=== PATIENT | female | born 1960 | race Caucasian/White ===

== ENCOUNTER 2017-02-18 15:19 | Emergency (ER) | payer MEDICARE, MEDICAID ==
[2017-02-18 15:30] VITALS: BP 135/96
[2017-02-18] MEDS ORDERED: HYDROcodone/ACETAMINOPHEN 1 EACH TABLET PO ONE (15:46)
--- NOTE | 2017-02-18 15:47 | ERNOTE ---
Lower Extremity HPI - Narrative Date of Service: 02/18/17 - General Lower Extremities Pain: leg: left Time Seen by Provider: 02/18/17 15:31 Source: patient, RN notes reviewed Exam Limitations: no limitations - Immun/Allergies/Home Medications Immunizations: IMMUNIZATION HX Immunizations Up to Date Yes History of Influenza Vaccine Yes Hx Pneumococcal Vaccination No Allergies/Adverse Reactions: Allergies Allergy/AdvReac Type Severity Reaction Status Date / Time No Known Allergies Allergy Verified 02/18/17 15:30 Home Medications: HOME MEDICATIONS ALPRAZolam [Xanax] 0.5 mg PO BID PRN 02/18/17 [Last Taken Unknown] Aspirin 325 mg PO DAILY 02/18/17 [Last Taken Unknown] Cholecalciferol (Vitamin D3) [Vitamin D] 2,000 unit PO DAILY 02/18/17 [Last Taken Unknown] Cyanocobalamin (Vitamin B-12) [B-12] 1,000 mcg PO DAILY 02/18/17 [Last Taken Unknown] Diltiazem HCl [Cartia Xt] 120 mg PO DAILY 02/18/17 [Last Taken Unknown] Empagliflozin [Jardiance] 10 mg PO DAILY 02/18/17 [Last Taken Unknown] Fenofibrate 160 mg PO DAILY 02/18/17 [Last Taken Unknown] Hydroxyzine HCl 50 mg PO TID 02/18/17 [Last Taken Unknown] Insulin Aspart Prot/Insuln Asp [Novolog Mix 70/30] 85 units SC BID 02/18/17 [ Last Taken Unknown] Ipratropium/Albuterol Sulfate [Combivent Respimat Inhal [place]] 1 puff IH QID [Last Taken Unknown] Levothyroxine Sodium [Synthroid] 50 mcg PO DAILY 02/18/17 [Last Taken Unknown] Losartan Potassium [Cozaar] 100 mg PO DAILY 02/18/17 [Last Taken Unknown] Memantine HCl 5 mg PO DAILY 02/18/17 [Last Taken Unknown] Prasugrel HCl [Effient] 10 mg PO DAILY 02/18/17 [Last Taken Unknown] Ranitidine HCl [Zantac] 150 mg PO BID 02/18/17 [Last Taken Unknown] Simvastatin [Zocor] 40 mg PO HS 02/18/17 [Last Taken Unknown] levETIRAcetam [Keppra] 500 mg PO BID 02/18/17 [Last Taken Unknown] - History of Present Illness Narrative: 56 y/o female presents to the ED for pain in her left lateral leg, just distal to the knee, that began suddenly while she was walking just shortly [employer]. She also felt a "pop" and reports edema in the area that is painful. She is concerned that she has a DVT. She has no prior history of DVT. She was seen in the ED at [facility] a week ago for leg pain. She was diagnosed with PVD and is to f/ u with Dr. Zapien. Occurred: just prior to arrival Method of Injury: Reports: no apparent injury Associated Symptoms: Reports: popping sensation. Denies: unable to bear weight , dizzy/light headedness, weakness, chest pain Other Injuries: Reports: none Subsequent Symptoms: Denies: sensory loss, numbness, motor loss Prior Treament: Reports: recently seen. Denies: similar symptoms before Review of Systems - Review of Systems Constitutional: Absent: recent illness, fever, decreased activity level EYE: Present: no symptoms reported ENT: Present: no symptoms reported Respiratory: Absent: shortness of breath, cough Cardiology: Absent: chest pain, edema, claudication Gastrointestinal/Abdominal: Absent: nausea, abdominal pain Genitourinary: Present: no symptoms reported Musculoskeletal: Present: muscle pain. Absent: joint pain, joint swelling Skin: Present: lumps. Absent: rash, lesions, change in color Neurological: Absent: weakness, numbness, tingling Endocrine: Present: no symptoms reported Hematologic/Lymphatic: Present: easy bruising, easy bleeding Psych: Present: no symptoms reported - Patient's Past Medical History Patient History - Medical: Diabetes Type 2, Obesity Patient History - Cardiac/Respiratory: Coronary Heart Disease, COPD, Hypertension, Hyperlipidemia Patient History - Cancer: Other Patient History - Surgical Procedures: Cholecystectomy, Colon Resection, Colonoscopy, Cardiac stent, Hysterectomy, Other Patient History - Other: None LMP (females 10-50): Menopausal - Social History Living Situations: spouse Abuse History: No History of abuse Psych History: No pertinent hx Smoking Status: Current every day smoker Have you smoked in the past 12 months: Yes Do you dip or chew tobacco: No Alcohol Use: none Drug Use: none - Immunizations Immunizations Up to Date: Yes Hx Pneumococcal Vaccination: No History of Influenza Vaccine: Yes Physical Exam - Physical Exam General Appearance: Present: wd/wn, alert, mild distress Respiratory: Present: no respiratory distress, no accessory muscle use, expiration (prolonged), rhonchi, wheezing Cardiovascular/Chest: Present: regular rate, rhythm, no murmur, normal peripheral pulses Extremity Exam: Present: normal range of motion, other - Left lateral leg tender and edematous near proximal fibula. Absent: pedal edema, calf tenderness , joint swelling Neurological Exam: Present: alert, oriented, normal mood/affect, no motor/ sensory deficits Skin Exam: Present: normal color, warm/dry ED Progress - Results and Orders Patient's Lab Results:: I have reviewed the patient's lab results. - Vital Signs Patient's Vital Signs:: I have reviewed the patient's vital signs. Vital Signs: Vital Signs 02/18/17 15:22 Temperature 36.2 C L Pulse Rate 94 Respiratory 16 Rate Blood Pressure 135/96 O2 Sat by Pulse 96 Oximetry - X-Ray X-Ray #1 X-Ray: tibula/fibula - Left Interpretation: Interp. by me X-ray Comments: No acute osseous abnormality noted - Progress/Reassessment Chief Complaint: Lower Extremity Pain/ Injury Departure Clinical Impression: Muscle strain of left lower extremity Qualifiers: Encounter type: initial encounter Qualified Code(s): S86.912A - Strain of unspecified muscle(s) and tendon(s) at lower leg level, left leg, initial encounter - Departure Disposition: Home Follow Up Needed Condition: Good Instructions: Muscle Strain, [id number] Additional Instructions: Ice and elevate DIANN wrap as needed Continue your routine medications Referrals: Kat Millan FNP [Primary Care Provider] -
[2017-02-18] MEDS ORDERED: HYDROcodone/ACETAMINOPHEN 1 EACH TABLET ONE (16:03)
[2017-02-18 16:13] LABS: Albumin * 3.6 gm/dl (3.4-5.0); Anion Gap 17.1 mmol/L (6.8-13.8); BUN/Creatinine Ratio 19.3 (9.0-21.6); Bilirubin, Total 0.2 mg/dL (0.0-1.1); CRP 0.6 mg/dL (0.0-0.9); Ca. Corrected For Albumin 9.1 mg/dL (8.4-10.2); Calcium * 9.1 mg/dL (7.9-10.9); Carbon Dioxide 21.6 mmol/L (24-32.6); Potassium 3.7 mmol/L (3.4-4.6)
[2017-02-18 17:02] LABS: Hemoglobin 15.9 gm/dL (12.5-16.0); Mean Cell Volume 89.4 fl (78-100); Mean Corpuscular Hemoglobin 30.2 pg (27-31); Mean Corpuscular Hgb Conc 33.8 g/dl (32-36); Mean Platelet Volume 10.9 fl (6.0-9.5); Neutrophil # 5.4 K/mm3 (1.3-6.0); Neutrophil % 53.7 % (42-75.0); Platelet Count 227 K/mm3 (150-450); Red Blood Count 5.26 M/mm3 (4.2-5.4); Red Cell Distribution Width 13.6 % (11.5-14.0); White Blood Count 10.1 K/mm3 (4.0-10.5)
== END 2017-02-18 16:52 | disposition home or self-care (01) ==
LOC: ER 15:19
DX: S86.912A Strain of unspecified muscle(s) and tendon(s) at lower leg level, left leg, initial encounter (principal); E11.9 Type 2 diabetes mellitus without complications; I25.2 Old myocardial infarction; J44.9 Chronic obstructive pulmonary disease, unspecified; I10 Essential (primary) hypertension; E78.5 Hyperlipidemia, unspecified

== ENCOUNTER 2017-03-31 19:07 | Emergency (ER) | payer MEDICARE, MEDICAID ==
[2017-03-31] MEDS ORDERED: DIATRIZOATE MEGLUMINE, SODIUM 30 ML BTL ONE (19:58)
--- NOTE | 2017-03-31 20:05 | ERNOTE ---
Abdominal HPI - Narrative Date of Service: 03/31/17 - General Chief Complaint: Abdominal Pain Time Seen by Provider: 03/31/17 19:50 Source: patient Exam Limitations: no limitations - Immun/Allergies/Home Medications Immunizatons: IMMUNIZATION HX Immunizations Up to Date Yes History of Influenza Vaccine No Hx Pneumococcal Vaccination No Allergies/Adverse Reactions: Allergies No Known Allergies Allergy (Verified 03/31/17 19:40) Home Medications: HOME MEDICATIONS ALPRAZolam [Xanax] 0.5 mg PO BID PRN 02/18/17 [Last Taken Unknown] Aspirin 325 mg PO DAILY 02/18/17 [Last Taken Unknown] Cholecalciferol (Vitamin D3) [Vitamin D] 2,000 unit PO DAILY 02/18/17 [Last Taken Unknown] Cyanocobalamin (Vitamin B-12) [B-12] 1,000 mcg PO DAILY 02/18/17 [Last Taken Unknown] Diltiazem HCl [Cartia Xt] 120 mg PO DAILY 02/18/17 [Last Taken Unknown] Empagliflozin [Jardiance] 10 mg PO DAILY 02/18/17 [Last Taken Unknown] Fenofibrate 160 mg PO DAILY 02/18/17 [Last Taken Unknown] Hydroxyzine HCl 50 mg PO TID 02/18/17 [Last Taken Unknown] Insulin Aspart Prot/Insuln Asp [Novolog Mix 70/30] 85 units SC BID 02/18/17 [ Last Taken Unknown] Ipratropium/Albuterol Sulfate [Combivent Respimat Inhal [place]] 1 puff IH QID [Last Taken Unknown] Levothyroxine Sodium [Synthroid] 50 mcg PO DAILY 02/18/17 [Last Taken Unknown] Losartan Potassium [Cozaar] 100 mg PO DAILY 02/18/17 [Last Taken Unknown] Memantine HCl 5 mg PO DAILY 02/18/17 [Last Taken Unknown] Prasugrel HCl [Effient] 10 mg PO DAILY 02/18/17 [Last Taken Unknown] Ranitidine HCl [Zantac] 150 mg PO BID 02/18/17 [Last Taken Unknown] Simvastatin [Zocor] 40 mg PO HS 02/18/17 [Last Taken Unknown] levETIRAcetam [Keppra] 500 mg PO BID 02/18/17 [Last Taken Unknown] - History of Present Illness Narrative: pt presents to the ED for five days of abd pain and distension. Denies nausea or vomiting. She has a history of prior abd surgeries. She has DM and CAD with stents. She denies any chest pain. She was scheduled to have an abd CT this coming Monday but the pain was too much Review of Systems - Review of Systems Constitutional: Present: no symptoms reported EYE: Present: no symptoms reported ENT: Present: no symptoms reported Respiratory: Present: no symptoms reported Cardiology: Present: no symptoms reported Gastrointestinal/Abdominal: Present: See HPI Genitourinary: Present: no symptoms reported Musculoskeletal: Present: no symptoms reported Skin: Present: no symptoms reported - Patient's Past Medical History Patient History - Medical: Diabetes Type 2, Obesity Patient History - Cardiac/Respiratory: Coronary Heart Disease, COPD, Hypertension, Hyperlipidemia Patient History - Cancer: Other Patient History - Surgical Procedures: Cholecystectomy, Colon Resection, Colonoscopy, Cardiac stent, Hysterectomy, Other Patient History - Other: None - Social History Living Situations: home Abuse History: No History of abuse Psych History: Hx of Anxiety, Hx of Depression Smoking Status: Current every day smoker Alcohol Use: none Drug Use: none - Immunizations Immunizations Up to Date: Yes Hx Pneumococcal Vaccination: No History of Influenza Vaccine: No Physical Exam - Physical Exam General Appearance: Present: wd/wn, alert, no apparent distress Head Exam: Present: normal inspection, no evidence of injury Respiratory: Present: no respiratory distress, normal breath sounds, no accessory muscle use, chest nontender, lungs clear Cardiovascular/Chest: Present: regular rate, rhythm, no murmur, normal peripheral pulses Gastrointestinal/Abdominal: Present: tenderness, distended, guarding, other - decreased and distant bowel sounds noted Extremity Exam: Present: normal inspection, non-tender, normal range of motion, no edema Neurological Exam: Present: alert, oriented, normal mood/affect, no motor/ sensory deficits ED Progress - Vital Signs Patient's Vital Signs:: I have reviewed the patient's vital signs. Vital Signs: Vital Signs 03/31/17 19:34 Temperature 36.3 C L Pulse Rate 83 Respiratory 18 Rate Blood Pressure 145/87 O2 Sat by Pulse 95 Oximetry - Progress/Reassessment Chief Complaint: Abdominal Pain Plan - Plan Plan: Patient will be treated for constipation. Departure Clinical Impression: Constipation Qualifiers: Constipation type: other constipation type Qualified Code(s): K59.09 - Other constipation - Departure Disposition: Home self-care Condition: Good Instructions: Constipation, Adult, [id number] Referrals: Kat Millan FNP [Primary Care Provider] -
[2017-03-31] MEDS ORDERED: DIATRIZOATE MEGLUMINE, SODIUM 30 ML BTL PO ONE (20:08)
[2017-03-31 20:09] LABS: Hematocrit 50.9 % (37.0-47.0); Hemoglobin 17.4 gm/dL (12.5-16.0); Mean Cell Volume 88.8 fl (78-100); Mean Corpuscular Hemoglobin 30.4 pg (27-31); Mean Corpuscular Hgb Conc 34.2 g/dl (32-36); Mean Platelet Volume 10.5 fl (6.0-9.5); Neutrophil # 7.4 K/mm3 (1.3-6.0); Neutrophil % 58.7 % (42-75.0); Platelet Count 212 K/mm3 (150-450); Red Blood Count 5.73 M/mm3 (4.2-5.4); Red Cell Distribution Width 13.3 % (11.5-14.0); White Blood Count 12.7 K/mm3 (4.0-10.5)
[2017-03-31 20:22] LABS: Albumin * 3.9 gm/dl (3.4-5.0); Anion Gap 13.6 mmol/L (6.8-13.8); Bilirubin, Total 0.3 mg/dL (0.0-1.1); Ca. Corrected For Albumin 9.9 mg/dL (8.4-10.2); Calcium * 10.1 mg/dL (7.9-10.9); Carbon Dioxide 27.2 mmol/L (24-32.6); Potassium 3.8 mmol/L (3.4-4.6); Total Protein 7.6 gm/dL (6.2-8.2)
[2017-03-31] MEDS ORDERED: NORMAL SALINE 1,000 ML IV ONE ×2 (20:25→20:26)
[2017-03-31] MEDS ORDERED: ONDANSETRON HCL/PF 2 MG/ML VIAL IV ONE (20:26)
[2017-03-31] MEDS ORDERED: ONDANSETRON HCL/PF 2 MG/ML VIAL ONE (20:53)
[2017-03-31 21:37] LABS: Urine Color Yellow
[2017-03-31 21:38] LABS: Urine Appearance Slightly Cloudy; Urine Bilirubin Negative (NEGATIVE); Urine Blood Negative /ul (NEGATIVE); Urine Ketone Negative (NEGATIVE); Urine Nitrite Negative (NEGATIVE); Urine Protein Negative (NEGATIVE); Urine Urobilinogen Normal (NORMAL)
[2017-03-31 21:39] LABS: Urine Bacteria None Seen; Urine RBC None Seen /hpf (0-5); Urine WBC 0-5 /hpf (0-5)
[2017-03-31 22:48] VITALS: BP 113/67
== END 2017-03-31 22:45 | disposition home or self-care (01) ==
LOC: ER 19:07
DX: K59.09 Other constipation (principal); F17.200 Nicotine dependence, unspecified, uncomplicated
CPT/HCPCS: 36415; 74177; 80053; 81001; 85025; 96374; 99284; J2405